=== PATIENT | male | born 1970 | race Caucasian/White ===

== ENCOUNTER 2019-08-21 17:11 | Emergency (ER) | payer MEDICAID ==
[~2019-08-21] VITALS: Ht 365.8 cm; Wt 60.0 kg
--- NOTE | 2019-08-21 18:02 | NUR ---
resting in bed
[2019-08-21] MEDS ORDERED: LORazepam 1 MG tablet PO ONE (18:15)
[2019-08-21] MEDS ORDERED: NICOTINE POLACRILEX 2 MG LOZENGE BC PRN (18:15)
--- NOTE | 2019-08-21 18:30 | NUR ---
Patient sitting low fowlers in bed. Patient is exhibiting anxity, he states he is depressed and is stranded in [place]. Patient states his car was towed, his is in [facility], she is his support mechanism.
[2019-08-21 18:32] LABS: BASOPHILS # (AUTO) 0.1 X10'3 (0-0.2); EOSINOPHILS # (AUTO) 0.1 X10'3 (0-0.9); EOSINOPHILS % (AUTO) 0.8 % (0-6); HEMATOCRIT 40.6 % (42.0-52.0); HEMOGLOBIN 13.7 g/dl (14.0-17.9); LYMPHOCYTES # (AUTO) 1.9 X10'3 (1.1-4.8); LYMPHOCYTES % (AUTO) 14.1 % (21-51); MEAN CORPUSCULAR HEMOGLOBIN 32.3 PG (27.0-31.0); MEAN CORPUSCULAR HGB CONC 33.8 g/dL (33.0-36.5); MEAN CORPUSCULAR VOLUME 95.7 FL (78-98); MEAN PLATELET VOLUME 7.1 FL (7.4-10.4); MONOCYTES # (AUTO) 1.3 X10'3 (0-0.9); MONOCYTES % (AUTO) 9.8 % (2-12); NEUTROPHILS # (AUTO) 9.9 X10'3 (1.8-7.7); NEUTROPHILS % (AUTO) 74.3 % (42-75); PLATELET COUNT 432 X10'3 (140-440); RED BLOOD COUNT 4.25 X10'6 (4.70-6.10); RED CELL DISTRIBUTION WIDTH 13.9 % (11.5-14.5); WHITE BLOOD COUNT 13.3 X10'3 (4.5-11.0)
[2019-08-21 18:48] LABS: CLARITY,URINE CLEAR (Clear); COLOR,URINE YELLOW (Yellow); GLUCOSE, URINE NEGATIVE (Neg); KETONES,URINE NEGATIVE (Neg); LEUKOCYTE ESTERASE ,URINE NEGATIVE (Neg); NITRITES, URINE NEGATIVE (Neg); OCCULT BLOOD,URINE NEGATIVE (Neg); PH,URINE 5.5 (4.8-8.0); PROTEIN,URINE 100 mg/dl (Neg)
[2019-08-21 18:48] LABS: ALANINE AMINOTRANSFERASE 24 U/L (12-78); ALBUMIN 4.4 G/DL (3.4-5.0); ALBUMIN/GLOBULIN RATIO 1.1 (1.1-1.5); ALKALINE PHOSPHATASE 104 IU/L (46-116); ANION GAP 8 (8-16); ASPARTATE AMINO TRANSFERASE 20 U/L (10-37); BILIRUBIN,TOTAL 0.7 MG/DL (0.1-1.0); BLOOD UREA NITROGEN 18 MG/DL (7-18); BUN/CREATININE RATIO 12.8 (5.4-32.0); CALCIUM 9.4 MG/DL (8.5-10.1); CHLORIDE 102 MMOL/L (99-107); CREATININE 1.41 MG/DL (0.60-1.10); GLUCOSE 73 MG/DL (70-104); POTASSIUM 4.1 MMOL/L (3.5-5.1); SODIUM 138 MMOL/L (135-145); TOTAL CARBON DIOXIDE 28.3 MMOL/L (24-32); TOTAL PROTEIN 8.3 G/DL (6.4-8.2); eGFR 54 ML/MIN
[2019-08-21 18:53] LABS: UA COLLECTION TYPE CLN CATCH MIDSTREAM
[2019-08-21 18:55] LABS: BACTERIA,URINE FEW /HPF (Neg); MUCUS STRANDS FEW /LPF (Neg); RBC,URINE 0-2 /HPF (0-2); SPERM FEW /HPF (NEGATIVE); SQUAMOUS EPITHELIAL CELL,UR FEW /LPF (FEW); WBC,URINE 0-4 /HPF (0-4)
[2019-08-21 18:56] LABS: URINE AMPHETAMINE SCREEN POSITIVE (Neg); URINE BARBITUATE SCREEN NEGATIVE (Neg); URINE BENZODIAZEPINES SCREEN NEGATIVE (Neg); URINE CANNABINOID SCREEN POSITIVE (Neg); URINE COCAINE SCREEN NEGATIVE (Neg); URINE METHADONE SCREEN NEGATIVE (Neg); URINE OPIATE SCREEN NEGATIVE (Neg); URINE PHENCYCLIDINE SCREEN NEGATIVE (Neg)
--- NOTE | 2019-08-21 18:56 | NUR ---
Patient denies S/I or H/I. Patient seen by ER MD. Labs have been drawn, patients urine has been sent. Patient has been given Ativan 2mg PO and a Nicotine Lozenge. He ate dinner and is resting quietly.
[2019-08-21 18:57] LABS: ETHANOL < 0.010 GM/DL (0.0-0.010)
--- NOTE | 2019-08-21 20:11 | NUR ---
Patient is awake and reading in bed.
--- NOTE | 2019-08-21 21:30 | NUR ---
Patient is awake, talking to his on telephone. No distress.
--- NOTE | 2019-08-21 22:21 | NUR ---
Patient is sleeping on his right side in bed.
--- NOTE | 2019-08-21 23:30 | NUR ---
Patient sleeping supine in bed. No distress.
--- NOTE | 2019-08-22 00:31 | NUR ---
Patient is sleeping in a prone position in bed. In view from nursing station.
--- NOTE | 2019-08-22 01:20 | NUR ---
Patient sleeping quietly. In view from nursing station.
--- NOTE | 2019-08-22 02:30 | NUR ---
Patient is sleeping on his right side. Quiet, no distress.
--- NOTE | 2019-08-22 03:25 | NUR ---
Patient is sleeping quietly on his right side. In view from the nursing station.
--- NOTE | 2019-08-22 04:30 | NUR ---
Patient is sleeping supine position in bed.
[2019-08-22 05:11] VITALS: BP 124/83
--- NOTE | 2019-08-22 05:53 | NUR ---
Patient sleeping supine in bed. No distress. Patient self repositions.
[2019-08-22] MEDS ORDERED: nicotine 21mg patch - 24 hr TD ONE (06:10)
--- NOTE | 2019-08-22 10:58 | NUR ---
[facility] psychosocial assessement underway.
--- NOTE | 2019-08-22 11:25 | NUR ---
recieved report from NANCY Morelos, assumed care. Pt. talking with [facility].
== END 2019-08-22 12:02 | disposition home or self-care (01) ==
LOC: ER 17:12
DX: F32.9 Major depressive disorder, single episode, unspecified (principal); F41.9 Anxiety disorder, unspecified; F15.10 Other stimulant abuse, uncomplicated; F17.200 Nicotine dependence, unspecified, uncomplicated
CPT/HCPCS: 36415; 80053; 80305; 80320; 81001; 84443; 85025; 99283; 99284; 99285